=== PATIENT | male | born 1975 | race African-American/Black ===

== ENCOUNTER 2017-01-23 15:05 | Emergency (ER) | payer OTHER ==
--- NOTE | ~2017-01-23 | EKG ---
PATIENT: LACY IVEY UNIT #: [id number] Ventricular Rate: 65 BPM Atrial Rate: 65 BPM P-R Interval: 140 ms QRS Duration: 78 ms Q-T Interval: 396 ms QTC Calculation(Bezet): 411 ms P [place]: 45 degrees Calculated R [place]: 10 degrees Calculated T [place]: 13 degrees Diagnosis Line: Normal sinus rhythm Diagnosis Line: Normal ECG Diagnosis Line: When compared with ECG of 23-NOV-2016 01:37, Diagnosis Line: No significant change was found Diagnosis Line: Confirmed by SANDRA GOLDMAN MD ([id number]) on 01/27/2017 Diagnosis Line: 11:58:24 AM INTERPRETING MD: JONES CABRERA
--- NOTE | ~2017-01-23 | CT2 ---
[facility] A Service of [facility] RADIOLOGY TEXT RESULTS PATIENT: LACY IVEY LOCATION: SED : 75 UNIT #: [id number] AGE: [address]: Ken Haynes DO SEX: M ORDER DR: [id number] [place] [id number] E MR#: [id number] Acc #: [id number] NAME: LACY IVEY : 1975 SEX: M STUDY DATE/TIME: 01/23/2017 16:00 UNIT: SED ROOM: STUDY DESCRIPTION: CT Abd and Pelv W Cont Attending Physician: Ken Haynes Ordering Physician: Ken Haynes MEDICAL IMAGING REPORT This report is preliminary unless electronic signature is present. EXAM CT abdomen and pelvis with contrast HISTORY 41-year-old male with abdominal pain for 5 days, acid reflux. COMPARISON CT abdomen and pelvis 11/23/2016 FINDINGS Axial images performed through the abdomen and pelvis following IV and oral contrast. Multiplanar reconstructed images reviewed at a workstation. This CT exam was performed with one or more of the following radiation dose reduction techniques: Automatic exposure control, adjustment of mA and/or kV according to patient size, and iterative reconstruction. ABDOMEN: Lung bases unremarkable. Liver, spleen, gallbladder, pancreas, kidneys and adrenal glands unremarkable. As previously noted, there are small retroperitoneal lymph nodes with some subtle stranding of the retroperitoneal fat surrounding the aorta and IVC. This is unchanged from prior studies and nonspecific. Visualized GI tract, to include the appendix, is normal. PELVIS: Bladder and prostate appear normal. Osseous structures remarkable for multilevel degenerative disc disease lumbar spine. IMPRESSION 1. No acute intraabdominal or intrapelvic pathology identified. 2. Shotty retroperitoneal lymphadenopathy with some stranding of the retroperitoneal fat. This is nonspecific and appears unchanged from the patient's CT scan of November 2016. [facility] A Service [facility] RADIOLOGY TEXT RESULTS PATIENT: LACY IVEY LOCATION: SED : 75 UNIT #: [id number] AGE: [address]: Ken Haynes DO SEX: M ORDER DR: Dictated by... Ana Avalos M.D. THIS IS AN ELECTRONICALLY VERIFIED REPORT Ana Avalos M.D. at 01/24/2017 1:06 PM BRIA/marcos TD: 01/23/2017 18:34 JOB #: [id number] MEDICAL IMAGING REPORT Page 1 of 1
[~2017-01-23 15:05] MED LIST: DICLOFENAC; PEPCID; PROTONIX
[2017-01-23 15:28] LABS: BASOPHIL% 0.6 % (0-2.5); EOSINOPHIL# 0.1 X10e3 (0-0.7); EOSINOPHIL% 1.5 % (0.0-7.0); HEMATOCRIT 41.9 % (38.0-50.0); HEMOGLOBIN 14.2 gm/dL (13.0-16.0); LYMPHOCYTE# 2.9 X10e3 (1.0-3.5); LYMPHOCYTE% 41.5 % (17.0-45.0); MEAN CELL VOLUME 87.8 FL (83-96); MEAN CORPUSCULAR HEMOGLOBIN 29.8 PG (28-34); MEAN CORPUSCULAR HGB CONC 33.9 g/dL (30-36); MEAN PLATELET VOLUME 7.8 FL (6.5-11.5); MONOCYTE# 0.5 X10e3 (0-1.0); MONOCYTE% 6.5 % (3.0-12.0); NEUTROPHIL# 3.5 X10e3 (1.5-7.1); NEUTROPHIL% 49.9 % (40-75); PLATELET COUNT 243 X10e3 (140-420); RED BLOOD COUNT 4.77 X10e (3.90-5.60); RED CELL DISTRIBUTION WIDTH 13.7 % (11.0-15.5); WHITE BLOOD COUNT 6.9 X10e3 (4.0-10.5)
[2017-01-23 15:34] LABS: DIFF IND NO
[2017-01-23 15:48] LABS: ALBUMIN SERUM 4.4 g/dL (3.5-5.0); ALKALINE PHOSPHATASE 61 U/L (32-92); ALT (SGPT) 26 U/L (10-40); AMYLASE 25 U/L (0-46); AST (SGOT) 26 U/L (10-42); BILIRUBIN,TOTAL 0.5 mg/dL (0.2-2.0); BLOOD UREA NITROGEN 15 mg/dL (9-23); CALCIUM SERUM 9.1 mg/dL (8.4-10.2); CARBON DIOXIDE 29 mmol/L (22-31); CHLORIDE 102 mmol/L (100-111); CREATININE SERUM 1.2 mg/dL (0.6-1.4); GLOM FILT RATE Estimated 86.6 mL/min (>60); GLUCOSE FASTING 94 mg/dL (70-110); LIPASE 24 U/L (22-51); POTASSIUM 4.6 mmol/L (3.5-5.1); PROTEIN TOTAL SERUM 7.9 g/dL (6.0-8.3); SODIUM 136 mmol/L (135-145)
[2017-01-23 15:49] LABS: BILIRUBIN, DIRECT <0.1 mg/dL (0.0-0.2); BILIRUBIN,INDIRECT 0.4 mg/dL (0.0-0.9)
[2017-01-23 17:21] LABS: URINE SOURCE CLEAN CATCH
[2017-01-23 17:23] LABS: URINE APPEARANCE CLEAR; URINE BILIRUBIN NEG (NEG); URINE BLOOD NEG (NEG); URINE COLOR YELLOW; URINE GLUCOSE NEG (NORM); URINE KETONE NEG (NEG); URINE LEUKOCYTE ESTERASE NEG (NEG); URINE NITRATE NEG (NEG); URINE PH 7.5 (5-8); URINE PROTEIN NEG (NEG); URINE SPECIFIC GRAVITY <=1.005 (1.003-1.035); URINE UROBILINOGEN 0.2 MG/DL (NORM)
[2017-01-23 17:25] LABS: MICRO INDICATED? NO
[2017-01-23] MEDS ORDERED: HYDROCODON-ACE1 EAC7 PO (17:44)
== END 2017-01-23 17:44 | disposition home or self-care (01) ==
LOC: SED 15:05
PROVIDERS: Emergency Medicine
DX: K29.00 Acute gastritis without bleeding (principal); R59.1 Generalized enlarged lymph nodes; Z98.890 Other specified postprocedural states; Z88.0 Allergy status to penicillin
CPT/HCPCS: 36415; 74177; 80048; 80076; 81003; 82150; 83690; 85025; 93005; 96374; 96375; 99284; J1170; J2405; Q9967